=== PATIENT | female | born 1965 | race Two or more races ===

== ENCOUNTER 2017-01-02 11:17 | Inpatient (IN) | payer OTHER ==
[~2017-01-02 11:17] MED LIST: ACETAMINOPHEN 1000MG/100 ML PREMIX IV ONE; CEFAZOLIN 2 Gram 50 ML IVPB ONE; CELECOXIB 100 MG CAPSULE PO ONE; FAMOTIDINE 20MG TABLET PO ONE; MECLIZINE 25 MG TABLET PO ONE; METOCLOPRAMIDE 10 MG TABLET PO ONE
[2017-01-02] MEDS ORDERED: BUPIVACAINE 0.25% W/EPI MPF 30ML VIAL IVP ONE (14:00)
[2017-01-02] MEDS ORDERED: BUPIVACAINE LIPOSOME 266MG/20ML VIAL IV ONE (14:00)
[2017-01-02] MEDS ORDERED: TRANEXAMIC ACID 1,000 MG/10 ML ML IV ONE (14:00)
[2017-01-02] MEDS ORDERED: SENNOSIDES/DOCUSATE SODIUM UD CAPSULE PO PRN (15:15)
[2017-01-02] MEDS ORDERED: METOCLOPRAMIDE HCL 10 MG/2 ML VIAL IVP PRN (15:15)
[2017-01-02] MEDS ORDERED: TRAMADOL HCL 50 MG TABLET PO PRN (15:15)
[2017-01-02] MEDS ORDERED: MAGNESIUM HYDROXIDE 30 ML UDC PO PRN (15:15)
[2017-01-02] MEDS ORDERED: ZOLPIDEM TARTRATE 5 MG TABLET PO PRN (15:15)
[2017-01-02] MEDS ORDERED: DIPHENHYDRAMINE HCL 25 MG CAPSULE PO PRN (15:15)
[2017-01-02] MEDS ORDERED: AL HYDROX/MAG HYDROX 30ML UD PO PRN (15:15)
[2017-01-02] MEDS ORDERED: OXYCODONE HCL 5 MG TABLET PO PRN (15:15)
[2017-01-02] MEDS ORDERED: LIDOCAINE 2% JELLY 30 ML TUBE TOP ONE (15:50)
[2017-01-02] MEDS ORDERED: PROPOFOL 10 MG/ML VIAL IV ONE (15:50)
[2017-01-02] MEDS ORDERED: EPHEDRINE SULFATE 50 MG/ML ML IV ONE (15:50)
[2017-01-02] MEDS ORDERED: FENTANYL PF 100MCG/2ML VIAL IV ONE (15:50)
[2017-01-02] MEDS ORDERED: GLYCOPYRROLATE 0.2 MG/ML ML IV ONE (15:50)
[2017-01-02] MEDS ORDERED: MIDAZOLAM HCL 2MG/2ML VIAL IV ONE (15:50)
[2017-01-02] MEDS ORDERED: GABAPENTIN 300 MG CAPSULE PO PRN (15:53)
[2017-01-02] MEDS ORDERED: TRANEXAMIC ACID 1,000 MG in 0.9 % SODIUM CHLORIDE 100ML 100 ML IVPB ONE (16:30)
[2017-01-02] MEDS: HYDROMORPHONE HCL 1 MG/ML CPJ IVP PRN ×3 (17:12→23:25)
--- NOTE | 2017-01-02 17:41 | Rehab Evaluation ---
Patient Information - Patient Information Diagnosis: Osteoarthritis R knee Ordered Treatment: PT Evaluate and Treat Status: Initial Evaluation Surgery: Yes (R TKA by Dr. Simon) Date of Surgery: 01/02/17 History: Detail (See additional medical intake form) Past Med/Melvin Hx Detail: Detail Past Medical/Surgical Hx: PAST MEDICAL/SURGICAL HISTORY Surgery to Affected Area? No Recent Surgery? Past Surgical History 1992-partial hyst 1999-Partial colecomy-benign polyp "the size of a grapefruit" PMH - Respiratory Hx Respiratory Disorders No PMH - Cardiovascular Hx Cardiovascular Disorders No Exercise Tolerance Poor Comment: Due to knee pain PMH - Neuro Hx Neurological Disorders No PMH - GI Hx Gastrointestinal Disorders Yes Hx Gastroesophageal Reflux Yes: On Omeprazole 20 mg daily Hx Irritable Bowel Yes Hx Ulcer Yes: ? hx of gastric ulcer Comment: Two hernias discovered on recent CT done for kidney stones PMH - Hx Genitourinary Disorders Yes Hx Age of Menopause 28 Patient No Hx Bladder Problem Yes: Frequency, nocturia Hx Kidney Stones Yes: Last 3 weeks. Seeing urologist end of January Hx Urinary Tract Infection Yes: In past PMH - Endocrine Hx Endocrine Disorders No PMH - Musculoskeletal Hx Musculoskeletal Disorders Yes Hx Arthritis Yes: Severe osteoarthritis right knee, right ankle Hx Fibromyalgia Yes: Told in shoulders, no problems for 6 mos Hx Gout Yes: Feet, not bothersome currently PMH - Psych Hx Psychiatric Problems No PMH - Hematology/Oncology Hx Hematology/Oncology No Disorders Premorbid Status: Detail (Patient reported progressive R knee osteoarthritis limited her ability to walk due to pain. Able to complete ADLs independently, but reported she has help to clean her house and cook. Reports she has a " walker with wheels.") Social History: Detail (Patient lives in a single story house in [place] and has support from her boyfriend for return to home environment. Reports she has a standard tub and toilet and grab bars in shower. Works at [employer] and has been off for work two weeks due to R knee pain.) Precautions: [place] - Time With Patient Total Time Spent With Patient (Min): 30 Treatment Procedures: Detail (PT evaluation partially completed based on patient status.) Subjective Information - Subjective Information Per Patient Objective Data - Pain Pain Present: Yes Pain Intensity: 6 (pain at rest) - Mental Status Patient Orientation: Oriented x3 (Name, birthday, and location) - Visual Perception Appears within normal limits for therapeutic activities - ROM Within normal limits, Other (Unable to formally assess due to acuity of surgery. Plan to assess next treatment session.) - Strength/Tone Within normal limits, Other (Unable to formally assess due to acuity of surgery and heightened pain levels. Plan to test next treatment session.) - Coordination Appears within normal limits for therapeutic activities - Bed Mobility Independent, Needs Assist (Required maxAx1 to move RLE, but was otherwise independent with general bed mobility. Also able to scoot on EOB independently.) - Transfers Needs Assist (Patient required maxAx1 for RLE to transfer from supine to sitting EOB. Utilized trapeze bar to assist.) - Balance Balance Sitting: Good (Patient had good static and dynamic balance as demonstrated by her ability to shift weight to adjust while sitting EOB and sit upright independently for 3 minutes.) - Sensation Intact, Deficit (Patient still presented with numbness and tingling s/p R TKA in BLE. Unable to differentiate sharp-dull in BLE. Deferred gait analysis and manual muscle testing to next treatment session.) - Gait Detail (Deferred due to acuity of surgery; patient still presented with impaired sensation (unable to differentiate between dull-sharp touch in BLE). Plan to assess next treatment session.) - Special Tests No Therapy Assessment - Therapy Assessment Detail (Patient is considered a low complexity PT evaluation based on body structure impairments including R knee pain,reduced R knee ROM and impaired functional strength s/p R TKA. No identifiable personal factors or comorbidities directly impact patient's POC. Due to the following body structure impairments, the patient has difficulty with the following activities : bed mobility, transfers, and ambulation with or without assistive device.) Problem List - Problem List Physical Therapy Problem List: Detail (1) R knee pain s/p TKA 2) reduced tolerance to activity 3) Impaired R knee ROM 4)Reduced functional strength of RLE) Goals - Goals Physical Therapy Goals: 1) Patient will ambulate 100' with front-lau walker with SBAx1. 2) Patient will complete all transfers and bed mobility independently. 3) Patient will demonstrate independence and compliance with beginning HEP. Prognosis - Prognosis Good Plan - Plan Physical Therapy Plan: PT 1-2x/day to address goals related to HEP, bed mobility , transfers, and gait training.
[2017-01-02] MEDS: OXYCODONE HCL 5 MG TABLET PO PRN (17:45)
[2017-01-02] MEDS: RINGERS SOLUTION,LACTATED 1,000 ML IV SCH (18:46)
[2017-01-02] MEDS: ACETAMINOPHEN 1,000 MG/ 100 ML IV SCH ×2 (19:32)
[2017-01-02] MEDS: CEFAZOLIN 2 Gram 2 GM in DEXTROSE 1 BAG IVPB SCH (20:49)
[2017-01-02] MEDS: FONDAPARINUX 2.5 MG/0.5 ML SYR SQ SCH (22:00)
[2017-01-03] MEDS: ACETAMINOPHEN 1,000 MG/ 100 ML IV SCH ×4 (01:08→07:05)
[2017-01-03] MEDS: OXYCODONE HCL 5 MG TABLET PO PRN ×4 (01:13→12:49)
[2017-01-03] MEDS: HYDROMORPHONE HCL 1 MG/ML CPJ IVP PRN ×5 (03:23→15:32)
[2017-01-03] MEDS: CEFAZOLIN 2 Gram 2 GM in DEXTROSE 1 BAG IVPB SCH ×2 (04:45→14:08)
[2017-01-03 06:41] LABS: HEMATOCRIT 36.3 % (35.0-47.0); HEMOGLOBIN 11.8 gm/dl (11.6-16.0); MEAN CELL VOLUME 95.3 fl (81-97); MEAN CORPUSCULAR HGB CONC 32.5 g/dl (32-36); MEAN PLATELET VOLUME 11.6 fl (7.4-10.4); PLATELET COUNT 222 K/uL (130-400); RED BLOOD COUNT 3.81 M/uL (3.80-5.40); RED CELL DISTRIBUTION WIDTH 12.8 % (11.5-14.5); WHITE BLOOD COUNT W/O DIFF 6.7 K/uL (4.2-12.2)
[2017-01-03 06:45] LABS: INR 0.88
[2017-01-03] MEDS: PANTOPRAZOLE SODIUM 40 MG TABLET PO SCH (07:05)
[2017-01-03] MEDS: RINGERS SOLUTION,LACTATED 1,000 ML IV SCH (09:12)
[2017-01-03] MEDS: ONDANSETRON HCL IV 4 MG/2 ML VIAL IVP PRN ×2 (11:28→14:14)
[2017-01-03] MEDS: ALLOPURINOL 100 MG TAB PO SCH (11:35)
--- NOTE | 2017-01-03 12:33 | Physical Therapy Tx Note ---
Physical Therapy Tx Note - Treatment Note Total Time Spent With Patient: 30 Physical Therapy Tx Note: Detail (Patient was sitting upright in bed when PT arrived. Pt transferred to EOB with modified independence(using other LE to assist surgical LE). Pain was 0/10 while sitting EOB, but patient complained of nausea. Received medication from nursing and nausea subsided enough to participate. Pt independently transferred from sit to standing with 2-wheeled walker with SBAx1. Educated patient on WBAT with ambulation. Ambulated 40' with 2-wheeled walker with SBAx1. Demonstrated appropriate upright posture and use of walker aside from initially stepping too far forward (parallel to front wheels). Required minimal instruction on appropriate step length with use of walker. Independently transferred to supine in bed using LLE to assist RLE. Pt also performed the following: B ankle pumps x10, B quad set x3. Able to initiate R quadriceps muscle activation, but unable to continue with HEP education due to another bout of nausea. Patient's pain was elevated to 8/10 after activity. Cold therapy was replaced over R knee to control associated pain and swelling. HEP education and gait training on stairs to be completed this afternoon per patient status.) Physical Therapy Problem List: Detail (1) R knee pain s/p TKA 2) reduced tolerance to activity 3) Impaired R knee ROM 4)Reduced functional strength of RLE) Physical Therapy Goals: 1) Patient will ambulate 100' with front-lau walker with SBAx1. 2) Patient will complete all transfers and bed mobility independently. 3) Patient will demonstrate independence and compliance with beginning HEP. Prognosis: Good Physical Therapy Plan: PT 1-2x/day to address goals related to HEP, bed mobility , transfers, and gait training.
[2017-01-03] MEDS ORDERED: OXYCODONE/APAP 7.5MG/325MG TABLET PO PRN (15:15)
[2017-01-03] MEDS ORDERED: ACETAMINOPHEN 325 MG TAB PO PRN (15:15)
[2017-01-03] MEDS: TRAMADOL HCL 50 MG TABLET PO PRN (15:32)
[2017-01-03] MEDS ORDERED: HYDROCODONE/APAP 10/325 TABLET PO PRN (15:52)
--- NOTE | 2017-01-03 16:06 | Physical Therapy Tx Note ---
Physical Therapy Tx Note - Treatment Note Tolerated: Poor (Patient in extreme pain 10/10 and refused even to get up to bathroom and requested bedpan. Was going to try to get her into CPM and see if that helped but still on bedpan. Attempted exercises for knee and made pain worse.) Total Time Spent With Patient: 10 Physical Therapy Tx Note: Detail (Patient seen at bedside for three different attempts for PT treatment in pm and claims pain is 10/10 right now and refusing to get out of bed or even sit up. Attempted quad sets to see if would help pain and heel slides but pain worse so assisted NA get patient onto bedpan. Patient did not finish before had to leave floor.) Physical Therapy Problem List: Detail (1) R knee pain s/p TKA 2) reduced tolerance to activity 3) Impaired R knee ROM 4)Reduced functional strength of RLE) Physical Therapy Goals: 1) Patient will ambulate 100' with front-lau walker with SBAx1. 2) Patient will complete all transfers and bed mobility independently. 3) Patient will demonstrate independence and compliance with beginning HEP. Prognosis: Good (With pain under better control patient should do well but will see her Friday for checkoff on stairs and longer distances with gait.) Physical Therapy Plan: PT 1-2x/day to address goals related to HEP, bed mobility , transfers, and gait training. See patient one time on Friday to check off on stairs and further distance with gait safely for discharge home.
[2017-01-03] MEDS: OXYCODONE/APAP 7.5MG/325MG TABLET PO PRN ×2 (17:15→23:08)
[2017-01-03] MEDS: FONDAPARINUX 2.5 MG/0.5 ML SYR SQ SCH (22:57)
[2017-01-04] MEDS: TRAMADOL HCL 50 MG TABLET PO PRN ×2 (03:22→11:19)
[2017-01-04] MEDS: HYDROMORPHONE HCL 1 MG/ML CPJ IVP PRN (04:50)
[2017-01-04] MEDS: PANTOPRAZOLE SODIUM 40 MG TABLET PO SCH (06:15)
[2017-01-04 06:38] LABS: HEMATOCRIT 34.9 % (35.0-47.0); HEMOGLOBIN 11.6 gm/dl (11.6-16.0); MEAN CELL VOLUME 95.6 fl (81-97); MEAN CORPUSCULAR HGB CONC 33.2 g/dl (32-36); MEAN PLATELET VOLUME 11.6 fl (7.4-10.4); PLATELET COUNT 214 K/uL (130-400); RED BLOOD COUNT 3.65 M/uL (3.80-5.40); RED CELL DISTRIBUTION WIDTH 12.8 % (11.5-14.5); WHITE BLOOD COUNT W/O DIFF 9.1 K/uL (4.2-12.2)
[2017-01-04 06:42] LABS: MEAN CORPUSCULAR HEMOGLOBIN 31.7 pg (27-33)
[2017-01-04 06:46] LABS: INR 0.96; PROTHROMBIN TIME (PATIENT) 10.8 SECONDS (9.5-12.1)
[2017-01-04] MEDS: OXYCODONE/APAP 7.5MG/325MG TABLET PO PRN ×2 (07:32→13:06)
[2017-01-04] MEDS: ALLOPURINOL 100 MG TAB PO SCH (09:02)
--- NOTE | 2017-01-04 12:04 | Physical Therapy Tx Note ---
Physical Therapy Tx Note - Treatment Note Tolerated: Fair Total Time Spent With Patient: 45 Physical Therapy Tx Note: Detail (Pt was supine in bed upon arrival and had just had dressing changed by nursing. Pt states pain is 6/10 today, and is concerned with doing stairs today but states only has three steps at home and only to get in the house. Pt completed ex's of quad sets, glute sets, ankle pumps x 10 each. Pt required min assist to transfer to sitting at edge of bed and used trapeze. Pt transferred to standing Independently and gait to bathroom where pt used the toilet and completed all self care Independently. Pt ambulated x 110 ft from bed to bathroom to stairs near nurses station with wheeled walker and contact gaurd assist. Pt required min assist but consistent verbal cueing to ascend and descend small flight of stairs with walker and railing. Pt was returned to room by wheelchair at pt. request due to fatigue. Pt transferred Independently but slowly to reclining chair. Pt was given bedside table with personal items and given nurses call button. Pt reclined in chair. Pt has difficulty weight bearing in Right LE with gait and stairs but was able to complete all check offs for release. Pt to be discharged from Hospital today.) Physical Therapy Problem List: Detail (1) R knee pain s/p TKA 2) reduced tolerance to activity 3) Impaired R knee ROM 4)Reduced functional strength of RLE) Physical Therapy Goals: 1) Patient will ambulate 100' with front-lau walker with SBAx1. 2) Patient will complete all transfers and bed mobility independently. 3) Patient will demonstrate independence and compliance with beginning HEP. Prognosis: Good Physical Therapy Plan: PT 1-2x/day to address goals related to HEP, bed mobility , transfers, and gait training. See patient one time on Friday to check off on stairs and further distance with gait safely for discharge home.
[2017-01-04] MEDS: FONDAPARINUX 2.5 MG/0.5 ML SYR SQ SCH (13:05)
--- NOTE | 2017-01-06 10:41 | Operative Note ---
DATE OF SURGERY: 01/02/2017 PREOPERATIVE DIAGNOSIS: Primary osteoarthritis of the right knee. POSTOPERATIVE DIAGNOSIS: Primary osteoarthritis of the right knee. OPERATIVE PROCEDURE: Right total knee arthroplasty. PROCEDURE: This 51-year-old female was taken to the operating room and placed in the supine position on the operating room table. A spinal anesthetic was administered, and the right lower extremity was elevated. It was prepped with Hibiclens and draped in the usual sterile fashion. It was exsanguinated and the tourniquet inflated to 300 mmHg. All scrubbed personnel wore personal isolation suits. An anterior longitudinal midline incision was made followed by medial parapatellar arthrotomy incision. The dissection was carried down through the skin and subcutaneous tissue. Hemostasis was obtained with electrocautery. Once the intraarticular contents were exposed, an intercondylar drill hole was made for the intramedullary alignment clarita and the distal femoral cutting block was pinned, and a 9 mm cut on the distal femur, and this was made at 5 degrees of valgus. The wafer of bone was removed. Sizing jig was affixed. This section had an anteroposterior medial lateral mismatch with it being like a size and a half larger in the anteroposterior dimension than it was in the medial lateral direction. Therefore, we did move the pin size 2 mm anteriorly and a size 60 was seen to be the most appropriate size, and the 4-in-1 cutting block was then pinned in 3 degrees of external rotation and the appropriate cuts were made. We then directed our attention to the proximal tibia, and an extramedullary alignment guide was used to cut the proximal tibial referencing a 10 mm cut off the lateral tibial plateau and once the appropriate alignment had been shared, a 3 degree posterior slope cut was made, and the wafer of bone was removed. The osteophytes were removed from the posterior aspect of the joint and remnants of the menisci also removed. The tibia was sized to a size 67, a stem punch was used. The patella was then cut and restored to anatomic height with a 31 x 8 mm patella. The wound was copiously irrigated with pulsed lavage lactated Ringer's solution. The trial components inserted and a 10 mm bearing was seen to be the appropriate size, given us excellent stability throughout the entire range of motion and excellent stability of the patellofemoral joint was also present. The joint was then copiously irrigated and suctioned after all trial components had been removed. Exparel was injected into the posteromedial and lateral corners of the joint, and after insertion of the final components, the remainder was injected into the periosteum and joint capsule of the proximal tibia and distal femur. All bony surfaces were dried and all components were cemented and excess cement removed after the insertion of each component. Initially, the tibia base place was placed, followed by insertion of the tibial bearing, femoral component, and then finally the patella. Once the cement had hardened, then the knee was again taken through range of motion with excellent stability of the components being identified, and the wound copiously irrigated with lactated Ringer's solution. A drain was placed through a separate stab incision. The arthrotomy incision closed with #2 Vicryl, subcutaneous tissue was closed with O Vicryl, and the skin was stapled. Sterile dressiness were applied with a Polar Care and the patient taken to the recovery room in satisfactory condition. GROSS PATHOLOGY: This patient had extremely severe patellofemoral osteoarthritis with full-thickness articular cartilage loss being noted there. Multiple pock-type, deep defects were present on both the medial and lateral femoral condyles, seen to be slightly worse on the lateral side, but the medial side demonstrated erosion of the articular cartilage as well with full-thickness lesions being noted there. There was also a full-thickness defect in the lateral tibial plateau. Final components inserted were a [employer] size 60 cruciate-retaining femoral component, a 67 tibia, a 10 mm anterior stabilized D1 bearing, and a 31 x 8 mm patella was used. Juan Simon DO CC: Thien Toney MD [facility]
--- NOTE | 2017-01-06 17:59 | Discharge Summary ---
DATE OF ADMISSION: 01/02/2017 DATE OF DISCHARGE: 01/04/2017 ADMITTING DIAGNOSIS: Osteoarthritis of the right knee. DISCHARGE DIAGNOSIS: Osteoarthritis of the right knee. OPERATIVE PROCEDURE: Elective right total knee arthroplasty. This 51-year-old female was admitted to the hospital for total knee arthroplasty and tolerating the operative procedure well. The drain was removed the first postoperative day. The patient progressed satisfactorily and was ready for discharge on 01/04/2017. The patient will have outpatient physical therapy. She will take aspirin 325 mg b.i.d. for 2 weeks. She was given a prescription for Percocet 7.5/325 one or two every 6 hours as necessary for pain and she was given 80. She will wear her PATRICE hose during the day and remove them at night. Routine wound care instructions were given. She will follow up in my office in 2 weeks. Should she have any problems prior to being seen, she was instructed to call my office. DO ANNABEL Antony
== END 2017-01-04 13:30 | disposition home or self-care (01) | DRG 470 ==
LOC: MEDSURG 11:17
PROVIDERS: ADMIT Orthopaedic Surgery; ATTEND Orthopaedic Surgery
PROC: 0SRC0J9 Replacement of Right Knee Joint with Synthetic Substitute, Cemented, Open Approach (ICD-10-PCS; principal; 2017-01-02 13:30)
DX: M17.11 Unilateral primary osteoarthritis, right knee (principal); M79.7 Fibromyalgia
CPT/HCPCS: 85025; 85610; 97110; 97116; 97161; 97530; J1170; J2405; J7120

== ENCOUNTER 2017-03-12 08:45 | Day surgery (SDC) | payer OTHER ==
[~2017-03-12 08:45] MED LIST changes: -CEFAZOLIN 2 Gram 50 ML IVPB ONE; -CELECOXIB 100 MG CAPSULE PO ONE; -FAMOTIDINE 20MG TABLET PO ONE; -MECLIZINE 25 MG TABLET PO ONE; -METOCLOPRAMIDE 10 MG TABLET PO ONE
[2017-03-12] MEDS ORDERED: PROPOFOL 10 MG/ML VIAL IV ONE (14:00)
[2017-03-12] MEDS ORDERED: HYDROMORPHONE HCL 2 MG/ML VIAL IV ONE ×2 (14:00→16:58)
[2017-03-12] MEDS ORDERED: *PACU ONLY* KETAMINE HCL 10 MG/ML (20ML) VIAL IV ONE (14:00)
[2017-03-12] MEDS ORDERED: FENTANYL PF 100MCG/2ML VIAL IV ONE (16:58)
--- NOTE | 2017-03-13 10:37 | Operative Note ---
DATE OF SURGERY: 03/12/2017 Surgeon: Juan Simon DO PREOPERATIVE DIAGNOSIS: Contracture of the right knee. POSTOPERATIVE DIAGNOSIS: Contracture of the right knee. OPERATION: Manipulation under anesthesia, right knee. PROCEDURE: This 51-year-old female was taken to the operating room and placed in the supine position on the operating room table. A general anesthetic was administered and the patient's knee was taken through range of motion and found to lack about 8 degrees of full extension and flex to only approximately 85 degrees. Then, with gentle pressure on the knee, we were able to disrupt cicatrix to flex the knee to 125 degrees without difficulty. Then straightening the knee, we could get it to approximately 3 degrees. The knee was then again taken through range of motion and the same measurements were easily identified. There was no evidence of instability of the knee. The patient was subsequently awakened and taken to the recovery room in satisfactory condition. GROSS PATHOLOGY: This patient demonstrated contracture of the right knee following total knee arthroplasty. The patient was unable to progress with physical therapy because she missed a significant amount of physical therapy immediately after the surgery because she was ill with respiratory condition which prevented her from going to therapy. She was never able to recover from that and was not able to flex her knee and had continuous pain. Therefore, we recommended manipulation as described above. The patient tolerated the operative procedure well. CC: MD ANNABEL Rangel
== END 2017-03-12 13:20 | disposition home or self-care (01) ==
LOC: SUR 08:45
PROVIDERS: ATTEND Orthopaedic Surgery
DX: M24.561 Contracture, right knee (principal)
CPT/HCPCS: 27570; 01380; J3010; J1170